=== PATIENT | male | born 1960 | race Caucasian/White ===

== ENCOUNTER → 2017-12-21 | Outpatient (CLI) | payer OTHER ==
[2017-12-21 07:55] LABS: Basophils % (A) 1 %; Eosinophils # (A) 0.2 k/uL (0-0.7); Eosinophils % (A) 3 %; HCT 44.5 % (39.0-53.0); HGB 15.7 gm/dL (13.0-17.5); Lymphocytes # (A) 1.1 k/uL (1.0-4.8); Lymphocytes % (A) 22 %; MCH 31.4 pg (25.0-35.0); MCHC 35.2 g/dL (31.0-37.0); MCV 89.3 fL (80.0-100.0); Mean Platelet Volume 6.8; Monocytes # (A) 0.5 k/uL (0-1.0); Monocytes % (A) 10 %; Neutrophils # (A) 3.1 k/uL (1.3-7.7); Neutrophils % (A) 61 %; Platelet Count 189 k/uL (150-450); RBC 4.98 m/uL (4.30-5.90)
[2017-12-21 09:29] LABS: Erythrocyte Sedimentation Rate 7 mm/hr (0-15)
--- NOTE | 2017-12-21 10:57 | NM ---
EXAMINATION TYPE: NM bone 3 phase DATE OF EXAM: 12/21/2017 COMPARISON: NONE HISTORY: Right hip pain Triple phase bone scintigraphy was performed following the injection of 25.3 mCi Tc 99m MDP. Immedia te images and 3 hours post injection images acquired. FINDINGS: Photopenic defect right hip compatible with right hip arthroplasty. No evidence for abnormal uptake a bout the right hip prosthesis or its stent component. Degenerative uptake left hip joint space. Mild degenerative uptake lower lumbar spine. IMPRESSION: Right hip prosthesis without significant radiotracer accumulation seen at this time. Degenerative upt caleb left hip.
== END | disposition home or self-care (01) ==
LOC: RADNMMAIN 07:05
PROVIDERS: ATTEND Orthopaedic Surgery
DX: R93.7 Abnormal findings on diagnostic imaging of other parts of musculoskeletal system (principal); Z96.641 Presence of right artificial hip joint
CPT/HCPCS: 85652; 85025; 86140; 78315; 36415; A9503

== ENCOUNTER → 2021-09-17 | Outpatient (CLI) | payer OTHER ==
--- NOTE | 2021-09-18 04:58 | MR ---
EXAMINATION TYPE: MR shoulder LT wo con DATE OF EXAM: 09/17/2021 COMPARISON: 06/19/2011 HISTORY: Left shoulder pain due to work related injury 04-26-21. Altered planar multi echo imaging of the left shoulder without contrast. The subscapularis tendon is intact. Biceps tendon is intact. There is a mild to moderate shoulder michael nt effusion. There is large rotator cuff tear with retraction of the supraspinatus tendon. There is e xtensive spurring at the AC joint. There is significant spurring of the humeral head. There is some s purring of the glenoid guillermina. There is no evidence of a fracture. IMPRESSION: Very large rotator cuff tear with retraction of the supraspinatus tendon that shows significant progr ession compared to the old exam. Osteoarthritic changes. Moderate shoulder joint effusion consistent with synovitis. No fracture seen. Moderate hypertrophic spurring at the AC joint that has progressed slightly compared to old exam.
== END | disposition home or self-care (01) ==
LOC: RADMRIMAIN 18:54
PROVIDERS: ATTEND Orthopaedic Surgery
DX: M19.012 Primary osteoarthritis, left shoulder (principal); M75.112 Incomplete rotator cuff tear or rupture of left shoulder, not specified as traumatic

== ENCOUNTER 2021-10-29 07:56 | Day surgery (SDC) | payer OTHER ==
[2021-10-27 17:03] VITALS: BMI 29.8
--- NOTE | 2021-10-28 17:08 | HP ---
HISTORY AND PHYSICAL DATE OF SURGERY: 10/29/2021 Sergio Damon is a 61-year-old gentleman seen with progressive left shoulder pain. We discussed options for treatment. He elected to proceed with left shoulder arthroscopy. Consent was obtained. PAST MEDICAL HISTORY: Hypertension. PAST SURGICAL HISTORY: Bilateral shoulder arthroscopy, hip surgery. DAILY MEDICATIONS: Multivitamin. ALLERGIES: NONE. SOCIAL HISTORY: He denies tobacco use. PHYSICAL EVALUATION OF THE LEFT SHOULDER: Flexion is 140 degrees. Abduction is 110 degrees. External rotation is 30 degrees with pain and weakness. Tenderness along the anterolateral acromion and rotator cuff insertion. Impingement is positive at 90 degrees. Cross-body adduction sign is positive. Drop-arm sign is positive. Distal neurovascular exam is intact. Radiographs of the left shoulder revealed a type 2 acromion, evidence for acromioclavicular joint osteoarthritis and mild glenohumeral joint osteoarthritis. MRI left shoulder revealed a large rotator cuff tear along with acromioclavicular joint osteoarthritis. IMPRESSION: 1. Left shoulder impingement with rotator cuff tear. 2. Left shoulder acromioclavicular joint osteoarthritis. 3. Hypertension. PLAN: Left shoulder arthroscopy with subacromial decompression, arthroscopic rotator cuff repair, Chloe procedure and debridement. MMODL / IJN: [id number] /
[2021-10-29] MEDS ORDERED: LACTATED RINGERS 1,000 ML IV ONE ×2 (08:38→11:38)
[2021-10-29 08:39] VITALS: TEMP 97.2
[2021-10-29] MEDS ORDERED: ONDANSETRON 4 MG/2 ML VIAL IVP ONE (08:39)
[2021-10-29] MEDS ORDERED: DEXAMETHASONE SOD PHOSPHATE 4 MG/ML 1 ML VIAL IVP ONE (08:39)
[2021-10-29] MEDS ORDERED: ONDANSETRON 4 MG/2 ML VIAL ONE (08:40)
[2021-10-29] MEDS ORDERED: fentaNYL (PF) 50 MCG/ML 2 ML AMP IVP ONE (08:49)
[2021-10-29] MEDS ORDERED: MIDAZOLAM 2 MG/2 ML VIAL IVP ONE (08:49)
[2021-10-29] MEDS ORDERED: MIDAZOLAM 2 MG/2 ML VIAL ONE (09:34)
[2021-10-29] MEDS ORDERED: LIDOCAINE 1% INJ 10MG/ML (20 ML MDV) ONE (09:34)
[2021-10-29] MEDS ORDERED: fentaNYL (PF) 50 MCG/ML 2 ML AMP ONE (09:34)
[2021-10-29] MEDS ORDERED: PROPOFOL 10 MG/ML 20 ML VIAL IV ONE (09:34)
[2021-10-29] MEDS ORDERED: ROPIVACAINE 5 MG/ML 30 ML VIAL ONE (09:34)
[2021-10-29] MEDS ORDERED: SUCCINYLCHOLINE CHLORIDE 100 MG/5 ML SYR IV ONE (09:34)
--- NOTE | 2021-10-29 11:05 | P.ANPRN ---
Procedure Note - Anesthesia - Nerve Block Performed Left Interscalene Single Time Out Performed: Yes ([id number]) Date of Procedure: 10/29/21 Procedure Start Time: 08:49 Procedure Stop Time: 08:53 Location of Patient: PreOp Indication: Acute Post-Operative Pain, Requested by Surgeon Specifically requested for management of pain by DrPeter: Kenneth Pelayo Sedation Type: Sedate with meaningful contact maintained Preparation: Sterile Prep Position: Supine Catheter: None Needle Types: Pajunk Needle Gauge: 21 Ultrasound used to visualize needle placement: Yes Ultrasound used to observe medication spread: Yes Injectate: 0.5% Ropivacaine (see comment for volume) (30cc) Blood Aspirated: No Pain Paresthesia on Injection Noted: No Resistance on Injection: Normal Image Stored and Saved: Yes Events: Uneventful and Well Tolerated
--- NOTE | 2021-10-29 11:47 | P.OP ---
Date of Procedure: 10/29/21 Preoperative Diagnosis: Left shoulder rotator cuff tear Postoperative Diagnosis: 1. Left shoulder rotator cuff tear 2. Left shoulder impingement 3. Left shoulder acromioclavicular joint osteoarthritis Procedure(s) Performed: 1. Left shoulder arthroscopic rotator cuff repair 2. Left shoulder arthroscopic subacromial decompression 3. Left shoulder arthroscopic Chloe procedure Implants: 54.75 Arthrex swivel lock anchors Anesthesia: GETA, regional (Interscalene block) Surgeon: Kenneth Pelayo Folded Towel Machine Operator #1: Erwin Flores Estimated Blood Loss (ml): 11 Pathology: none sent Condition: stable Disposition: PACU Indications for Procedure: 59-year-old gentleman seen with persistent left shoulder pain. Options were discussed. He elected to proceed with arthroscopy. Operative Findings: See description of procedure Description of Procedure: Patient underwent an interscalene block by department of anesthesia. The patient was then taken to the operative suite. The patient underwent a general anesthetic by the department of anesthesia. The patient was placed into a lateral position and secured. There was appropriate padding of the bony prominence. Left shoulder was then prepped and draped in normal sterile orthopedic fashion. We placed the extremity in 10 pounds of longitudinal traction. A posterior incision was now made for a posterior working portal site. The trocar and cannula were inserted into the glenohumeral joint. Arthroscopy was initiated. Spinal needle was now inserted anteriorly, to ascertain the anterior working portal site. An incision was now made in that area, a trocar was inserted followed by a probe. There were grade 1/2 chondromalacia changes about the shoulder. Biceps tendon was absent. The labrum was diminutive but no tears were evident. There was an obvious massive rotator cuff tear I couldn't visualize from the glenohumeral joint. At this point instruments removed from glenohumeral joint. Utilizing the posterior working portal site, the trocar and cannula were inserted into the subacromial space. Arthroscopy initiated. I made an incision 2 fingerbreadths lateral to the acromion. I introduced my trocar followed by my ArthroCare ablator. I now began ablating thick subacromial bursal tissue, which exposed the undersurface of the anterior acromion. There was diminished subacromial space. There was a very prominent anterior acromion. A motorized bur was introduced and a subacromial decompression was performed. I also excised some osteophytes off the inferior aspect of the distal clavicle. The AC joint was visualized and noted to be fairly arthritic. The motorized bur was introduced in the anterior portal site and a Chloe procedure was performed without difficulty, decompressing the AC joint nicely. I turned my attention to the rotator cuff. There was a 44.5 cm rotator cuff tendon tear with retraction. I debrided the margins getting down to stable tendon tissue. With the assistance of Erwin RICARDO I passed 2 converging suture centrally and repaired the tendon centrally. I now abraded the footprint with a motorized bur. I created an mixing machine feeder portal site off the lateral acromion. I now punched awl hole anterior medially and posterior medially and then with the assistance of Erwin RICARDO introduced to 4.75 Arthrex anchors with 2 suture tapes each. I now passed a central everted mattress suture. I punched hole laterally for insertion of an anchor. The 2 limbs of suture centrally or were passed through the eyelet of a 4.75 Arthrex swivel lock anchor. I placed the eyelet into the pre-punch hole and held it there while Erwin RICARDO tension the suture limbs and deployed the ankle with good fixation noted. We now punched 2 holes for lateral fixation. I passed 4 limbs of suture through the eyelet of a 4.75 Arthrex swivel lock anchor. I placed the eyelet into the anterior pre-punch hole. I held it in position while Erwin RICARDO tension all 4 suture limbs and deployed the anchor with good fixation noted. I performed the same task for the posterior lateral anchor with the assistance of Erwin RICARDO. All residual suture limbs were now clipped. We had good compression of the tendon along the entire footprint. Instruments now removed from the portal sites. All portal sites were approximated with nylon suture. Sterile dressings were applied followed by a shoulder immobilizer. Erwin RICARDO assisted in this complex case. The patient was awakened, transferred to a bed, and taken to recovery in stable condition.
[2021-10-29 14:25] VITALS: BP 115/77; PULSE 75; RESP 18
== END 2021-10-29 14:30 | disposition home or self-care (01) ==
LOC: OR 07:56
PROVIDERS: ATTEND Orthopaedic Surgery
DX: M75.102 Unspecified rotator cuff tear or rupture of left shoulder, not specified as traumatic (principal); M25.812 Other specified joint disorders, left shoulder; M19.012 Primary osteoarthritis, left shoulder; M94.212 Chondromalacia, left shoulder; M25.712 Osteophyte, left shoulder; I10 Essential (primary) hypertension; Z98.890 Other specified postprocedural states
CPT/HCPCS: 64415; 76942; 29826; 29827; 29824; C1713; J2250; J1100; J0690; J2405; J2001; J3010; J2795; J0330; J2704